=== PATIENT | female | born 1955 | race Caucasian/White ===

== ENCOUNTER 2019-03-29 10:23 | Emergency (ER) | payer MEDICAID ==
[2019-03-29] MEDS ORDERED: OXYCODONE-ACETAMINOPHEN 5-325 MG TABLET PO ONE (10:42)
[2019-03-29 11:11] VITALS: BP 140/95
--- NOTE | 2019-03-29 11:42 | RADIOLOGY REPORT (SQ) ---
EXAM DESCRIPTION: SHOULDER LEFT 2 OR MORE VIEWS COMPLETED DATE/TIME: 03/29/2019 11:03 am REASON FOR STUDY: pain, worse due to recurrent injury COMPARISON: None. NUMBER OF VIEWS: Three views. TECHNIQUE: Internal rotation, external rotation, and Y view images acquired of the left shoulder. LIMITATIONS: None. FINDINGS: MINERALIZATION: Normal. BONES: No acute fracture. Possible chronic fracture deformity of the proximal left humerus. No worr isome bone lesions. JOINTS: No dislocation. Moderate left glenohumeral and acromioclavicular arthrosis. VISUALIZED LUNGS AND RIBS: No pneumothorax. No rib fracture. SOFT TISSUES: No radiopaque foreign body. OTHER: No other significant finding. IMPRESSION: No acute fracture or dislocation of the left shoulder. Moderate arthrosis. TECHNICAL DOCUMENTATION: JOB ID: [id number] [employer]- All Rights Reserved Reading location - IP/workstation name: [email or web address]
--- NOTE | 2019-03-29 11:43 | RADIOLOGY REPORT (SQ) ---
EXAM DESCRIPTION: KNEE RIGHT 3 VIEWS COMPLETED DATE/TIME: 03/29/2019 11:03 am REASON FOR STUDY: pain, worse due to recurrent injury COMPARISON: None. NUMBER OF VIEWS: Four views. TECHNIQUE: AP, lateral, and both oblique radiographic images acquired of the right knee. LIMITATIONS: None. FINDINGS: MINERALIZATION: Normal. BONES: No acute fracture or dislocation. No worrisome bone lesions. JOINT: No effusion. Severe tricompartmental arthrosis, with rbww-dn-[id number] joint space loss of the lat eral compartment and large subchondral geodes. SOFT TISSUES: No soft tissue swelling. No radio-opaque foreign body. OTHER: No other significant finding. IMPRESSION: No fracture or dislocation of the right knee. Severe tricompartmental arthrosis, with elena ne-on-bone joint space loss of the lateral compartment and large subchondral geodes. TECHNICAL DOCUMENTATION: JOB ID: [id number] [employer]- All Rights Reserved Reading location - IP/workstation name: [email or web address]
--- NOTE | 2019-03-29 11:49 | ER Document Report ---
HPI - HPI Time Seen by Provider: 03/29/19 10:35 Pain Level: 3 Notes: Patient is a 63-year-old female presented to the emergency department chief complaint of left shoulder pain and right knee pain. Patient reports history of pain to these areas, states she has not had x-rays taken of them. She states she just moved to the area and is trying to get established into pain management. She reports that she takes "large doses of medications for her pain". She states that she is out of her medications. She denies any back pain, fever or any acute illness. - CONSTITUTIONAL Constitutional: DENIES: Fever, Chills - EENT EENT: DENIES: Sore Throat, Ear Pain, Eye problems - NEURO Neurology: DENIES: Headache, Weakness, Vision blurred, Dizzinesss / Vertigo - CARDIOVASCULAR Cardiovascular: DENIES: Chest pain - RESPIRATORY Respiratory: DENIES: Trouble Breathing, Coughing - GASTROINTESTINAL Gastrointestinal: DENIES: Abdominal Pain, Black / Bloody Stools - URINARY Urinary: DENIES: Dysuria, Urgency, Frequency - MUSCULOSKELETAL Musculoskeletal: REPORTS: Extremity pain - right knee pain Past Medical History - General Information source: Patient - Social History Smoking Status: Current Every Day Smoker Frequency of alcohol use: None Drug Abuse: None Lives with: Alone Family History: Reviewed & Not Pertinent Patient has suicidal ideation: No Patient has homicidal ideation: No Renal/ Medical History: Denies: Hx Peritoneal Dialysis Musculoskeletal Medical History: Reports Hx Arthritis, Reports Hx Fibromyalgia Surgical Hx: Negative - Immunizations Immunizations up to date: Yes Vertical Provider Document - CONSTITUTIONAL Notes: PHYSICAL EXAMINATION: GENERAL: Well-appearing, well-nourished and in no acute distress. HEAD: Atraumatic, normocephalic. EYES: Pupils equal round extraocular movements intact, conjunctiva are normal. ENT: Nares patent NECK: Normal range of motion LUNGS: No respiratory distress Musculoskeletal: Limited range of motion to bilateral upper and lower extremities due to pain. Strong pulses throughout, no vertebral tenderness in the cervical, thoracic or lumbar spine. NEUROLOGICAL: Normal speech. PSYCH: Normal mood, normal affect. SKIN: Warm, Dry, normal turgor, no rashes or lesions noted. Course - Re-evaluation Re-evalutation: Knee X-Ray 03/29/19 10:42 IMPRESSION: No fracture or dislocation of the right knee. Severe tricompartmental arthrosis, with rncr-vq-jsol joint space loss of the lateral compartment and large subchondral geodes. Shoulder X-Ray 03/29/19 10:42 IMPRESSION: No acute fracture or dislocation of the left shoulder. Moderate arthrosis. X-rays of the right knee and left shoulder are both negative for any fracture dislocation. Patient does have arthrosis noted on the x-rays. Patient reports she was in pain management for her arthritis and just moved to the area. I did explain to patient that we do not treat chronic pain in the emergency department setting. She does report that she has an appointment with a house painting instructor in 3 weeks. I did give patient some options of wjfw-dvc-[id number] treatment modalities such as acetaminophen and ibuprofen. I did prescribe Voltaren gel that she can apply directly to the areas. Patient is in agreements with this plan. Patient denies any questions. The patient's emergency department workup and current diagnosis were explained to the patient and or family. Follow-up instructions were provided. Medications if prescribed were discussed. Instructions for when to return to the emergency department including specific worrisome symptoms were discussed with the patient and/or family. - Vital Signs Vital signs: Temp Pulse Resp BP Pulse Ox 98.1 F 72 20 140/95 H 97 03/29/19 11:09 03/29/19 11:09 03/29/19 11:09 03/29/19 11:09 03/29/19 11:09 Discharge - Discharge Clinical Impression: Arthritis Condition: Stable Disposition: HOME, SELF-CARE Instructions: Family Physicians / Practices Additional Instructions: The x-rays that were obtained of your shoulder and knee show arthritis. Please take ibuprofen 600 mg every 6 hours for pain. You can also use the Voltaren gel that I have prescribed. Please establish care with a primary care physician, a list has been provided for you. Continue to try to obtain an appointment with pain management so that you can also establish care there. We are unable to refill chronic pain medications. Return to the emergency department with any new or worsening symptoms. Prescriptions: Diclofenac Sodium [Voltaren] 100 gm TP BID #1 gel..gm.
== END 2019-03-29 11:50 | disposition home or self-care (01) ==
LOC: ER 10:23
DX: M17.11 Unilateral primary osteoarthritis, right knee (principal); M19.012 Primary osteoarthritis, left shoulder; M25.512 Pain in left shoulder; M25.561 Pain in right knee; F17.200 Nicotine dependence, unspecified, uncomplicated
CPT/HCPCS: 99283